=== PATIENT | female | born 1970 | race American Indian/Alaskan Native ===

== ENCOUNTER 2021-04-14 22:03 | Emergency (ER) | payer OTHER ==
--- NOTE | 2021-04-14 23:16 | XRay Report ---
XR chest routine 2V INDICATION / CLINICAL INFORMATION: Cough. COMPARISON: None available. FINDINGS: SUPPORT DEVICES: None. HEART /PULMONARY VASCULATURE: No significant abnormality. LUNGS / PLEURA: No significant pulmonary or pleural abnormality. No pneumothorax. ADDITIONAL FINDINGS: No significant additional findings. IMPRESSION: 1. No acute findings. Signer Name: Golden Zhang MD Signed: 04/14/2021 11:12 PM Workstation Name: [id number]
[2021-04-14] MEDS ORDERED: methylPREDNISolone Sod Succinate 125 MG/2 ML INJ IM ONE (23:42)
--- NOTE | 2021-04-14 23:44 | Emergency Department Report ---
- General Chief Complaint: Upper Respiratory Infection Stated Complaint: COUGH AND FEVER Source: patient Mode of arrival: Ambulatory Limitations: No Limitations - History of Present Illness Initial Comments: Patient is a 51-year-old -[place] female with a history of chronic bronchitis, asthma, heavy tobacco abuse as well as [id number]-[id number] diabetes who presents to the ED with complaint of acute onset persistent nasal and sinus congestion, persistent frontal sinus pressure and persistent dry cough for the last 1 week, worse in the last 2 days. Patient states that she has not used any inhaler in the last 2 days. Patient states that no one else at home has had similar symptoms. Patient denies fever, chills, nausea, vomiting, dizziness, syncope, chest pain, abdominal pain, shortness of breath and headache. MD Complaint: cough, rhinorrhea, nasal congestion, sinus pain -: Sudden, week(s) (1) Severity: moderate Severity scale (0 -10): 5 Quality: sharp, aching Consistency: constant Improves With: nothing Worsens With: nothing Context: sick contacts Associated Symptoms: myalgias, cough. denies: fever, chills, diaphoresis, headache, rhinorrhea, nasal congestion, stiff neck, chest pain, shortness of breath, nausea, vomiting, dysuria, rash, right sweats, epistaxis, hoarseness, other Treatments Prior to Arrival: "cold medicine" - Related Data Previous Rx's Medication Instructions Recorded Last Taken Type Azithromycin [Zithromax Z-COLIN] 250 mg PO DAILY #6 tablet 04/15/21 Unknown Rx Benzonatate [Tessalon Perles] 100 mg PO Q8HR #30 capsule 04/15/21 Unknown Rx Cetirizine HCl [Zyrtec 10mg tab] 10 mg PO DAILY #30 tablet 04/15/21 Unknown Rx Ibuprofen [Motrin] 800 mg PO Q8HR PRN #24 tablet 04/15/21 Unknown Rx Allergies Allergy/AdvReac Type Severity Reaction Status Date / Time No Known Allergies Allergy Verified 04/14/21 22:51 ED Review of Systems ROS: Stated complaint: COUGH AND FEVER Other details as noted in HPI Constitutional: denies: chills, fever Eyes: denies: eye pain, eye discharge, vision change ENT: congestion, other (Sinus pressure). denies: ear pain, throat pain Respiratory: cough, wheezing. denies: shortness of breath Cardiovascular: denies: chest pain, palpitations Endocrine: no symptoms reported Gastrointestinal: denies: abdominal pain, nausea, diarrhea Genitourinary: denies: urgency, dysuria, discharge Musculoskeletal: denies: back pain, joint swelling, arthralgia Skin: denies: rash, lesions Neurological: denies: headache, weakness, paresthesias Psychiatric: denies: anxiety, depression Hematological/Lymphatic: denies: easy bleeding, easy bruising ED Past Medical Hx - Past Medical History Previous Medical History?: Yes Hx Diabetes: Yes Hx Asthma: Yes - Surgical History Past Surgical History?: No - Social History Smoking Status: Current Every Day Smoker Substance Use Type: None - Medications Home Medications: Home Medications Medication Instructions Recorded Confirmed Last Taken Type Azithromycin [Zithromax Z-COLIN] 250 mg PO DAILY #6 tablet 04/15/21 Unknown Rx Benzonatate [Tessalon Perles] 100 mg PO Q8HR #30 capsule 04/15/21 Unknown Rx Cetirizine HCl [Zyrtec 10mg tab] 10 mg PO DAILY #30 tablet 04/15/21 Unknown Rx Ibuprofen [Motrin] 800 mg PO Q8HR PRN #24 tablet 04/15/21 Unknown Rx ED Physical Exam - General Limitations: No Limitations General appearance: alert, in no apparent distress, anxious - Head Head exam: Present: normocephalic, normal inspection - Eye Eye exam: Present: PERRL, EOMI Pupils: Present: normal accommodation - ENT ENT exam: Present: TM's normal bilaterally, normal external ear exam, other (Grossly congested nasal passages; palpable frontal and maxillary sinus tenderness) - Neck Neck exam: Present: normal inspection, full ROM - Respiratory Respiratory exam: Present: normal lung sounds bilaterally. Absent: respiratory distress, wheezes, rales, rhonchi, chest wall tenderness, decreased breath sounds - Cardiovascular Cardiovascular Exam: Present: bradycardia, normal heart sounds - GI/Abdominal GI/Abdominal exam: Present: soft, normal bowel sounds. Absent: tenderness, rebound, hyperactive bowel sounds, hypoactive bowel sounds, organomegaly - Extremities Exam Extremities exam: Present: normal inspection, full ROM, normal capillary refill - Back Exam Back exam: Present: normal inspection, full ROM. Absent: tenderness, CVA tenderness (R), CVA tenderness (L), muscle spasm, paraspinal tenderness - Neurological Exam Neurological exam: Present: alert, oriented X3, CN II-XII intact, normal gait, reflexes normal - Psychiatric Psychiatric exam: Present: anxious - Skin Skin exam: Present: warm, dry, intact, normal color. Absent: rash, erythema, urticaria, vesicles ED Course Vital Signs 04/14/21 04/15/21 22:08 00:39 Temperature 99.0 F Pulse Rate 118 H 94 H Respiratory 18 91 H Rate Blood Pressure 151/90 Blood Pressure 152/90 [Left] O2 Sat by Pulse 96 99 Oximetry ED Medical Decision Making - Radiology Data Radiology results: report reviewed, image reviewed [facility] [address] [place] [address] XRay Report Signed Patient: MISTY ROACH MR#: [id number] : 1970 Acct:[id number] Age/Sex: 51 / F ADM Date: 04/14/21 Loc: ED Attending Dr: Ordering Physician: MALVIN DYKES Date of Service: 04/14/21 Procedure(s): XR chest routine 2V Accession Number(s): [id number] cc: MALVIN DYKES Fluoro Time In Minutes: XR chest routine 2V INDICATION / CLINICAL INFORMATION: Cough. COMPARISON: None available. FINDINGS: SUPPORT DEVICES: None. HEART /PULMONARY VASCULATURE: No significant abnormality. LUNGS / PLEURA: No significant pulmonary or pleural abnormality. No pneumothorax. ADDITIONAL FINDINGS: No significant additional findings. IMPRESSION: 1. No acute findings. Signer Name: Amish Zhang MD Signed: 04/14/2021 11:12 PM Workstation Name: [id number] Transcribed By: JS Dictated By: AMISH ZHANG MD Electronically Authenticated By: AMISH ZHANG MD Signed Date/Time: 04/14/212311 DD/ 11 TD/TT: - Medical Decision Making This is a 51-year-old -[place] female with a history of chronic bronchitis, chronic asthma, heavy tobacco abuse as well as uvq-bhimxsj-[id number] diabetes who presents to the ED with complaint of acute onset persistent nasal and sinus congestion, persistent frontal sinus pressure and persistent dry cough for the last 1 week, worse in the last 2 days. Patient states that she has not used any inhaler in the last 2 days. Patient states that no one else at home has had similar symptoms. In the ED, patient is alert and oriented x3 and is not in any distress but anxious and tachycardic in triage. Chest x-ray showed no acute cardiopulmonary abnormalities or pneumonitis. Patient was treated in the ED with Solu-Medrol 125 mg intramuscular injection. On reevaluation, patient cough improved significantly and patient is hemodynamically stable. Tachycardia also resolved in the ED. Patient was discharged home on medications and advised to follow-up with her primary care physician in 5 to 7 days for reeva luation. Patient was also counseled on the importance of quitting tobacco her smoking habit in order to improve on her symptoms. Patient is advised return to the ED immediately if symptoms get worse. - Differential Diagnosis Bronchitis; asthma; pneumonia; URI; sinusitis Critical care attestation.: If time is entered above; I have spent that time in minutes in the direct care of this critically ill patient, excluding procedure time. ED Disposition Clinical Impression: Acute upper respiratory infection, Acute bronchitis with asthma with acute exacerbation Acute sinusitis, unspecified Qualifiers: Sinusitis location: pansinusitis Recurrence: non-recurrent Qualified Code(s): J01.40 - Acute pansinusitis, unspecified Disposition: HOME / SELF CARE / HOMELESS Is pt being admited?: No Does the pt Need Aspirin: No Condition: Stable Instructions: Cough, Adult, [id number], Sinusitis, Adult, [id number], Acute Bronchitis, Adult, Naqk-pi-Usdo, Upper Respiratory Infection, Adult, [id number]-[id number], Asthma, Adult, Srqe-ru-Qayl Additional Instructions: Chest x-ray showed no acute cardiopulmonary abnormalities or pneumonitis. Your symptoms are likely due to upper respiratory infection complicating your chronic asthmatic bronchitis. Obviously smoking habit plays a significant role in making the symptoms worse. Therefore consider quitting the habit of smoking tobacco to improve on your symptoms. Follow-up with your primary care physician in 5 to 7 days for reevaluation. Return to the ED immediately if symptoms get worse. Prescriptions: Ibuprofen [Motrin] 800 mg PO Q8HR PRN #24 tablet PRN Reason: Pain , Severe (7-10) Benzonatate [Tessalon Perles] 100 mg PO Q8HR #30 capsule Azithromycin [Zithromax Z-COLIN] 250 mg PO DAILY #6 tablet Cetirizine HCl [Zyrtec 10mg tab] 10 mg PO DAILY #30 tablet Referrals: [facility] [Provider Group] - 7-10 days Forms: Work/School Release Form(ED) Time of Disposition: 00:03 Print Language: WOLOF
[2021-04-15 00:40] VITALS: BP 152/90
== END 2021-04-15 00:42 | disposition home or self-care (01) ==
LOC: ED 22:03
DX: J06.9 Acute upper respiratory infection, unspecified (principal); J45.909 Unspecified asthma, uncomplicated; J01.90 Acute sinusitis, unspecified; E11.9 Type 2 diabetes mellitus without complications; F17.200 Nicotine dependence, unspecified, uncomplicated; Z79.899 Other long term (current) drug therapy
CPT/HCPCS: 71046; 96372; 99283; J2930